=== PATIENT | female | born 1990 | race Two or more races ===

== ENCOUNTER 2023-06-04 10:48 | Outpatient (CLI) | payer OTHER | END 2023-06-04 10:51 | disposition home or self-care (01) | LOC: NUCLEAR 10:48 | PROVIDERS: ATTEND Obstetrics & Gynecology Gynecology | DX: O09.72 Supervision of high risk pregnancy due to social problems, second trimester (principal) ==

== ENCOUNTER 2024-02-09 13:46 | Outpatient (CLI) | payer OTHER ==
[~2024-02-09 13:46] MED LIST: C-NATE DHA SOF1 EACH; PROTONIX40 MG
== END 2024-02-09 13:57 | disposition home or self-care (01) ==
LOC: RAD 13:46
PROVIDERS: ATTEND Orthopaedic Surgery
DX: S93.491D Sprain of other ligament of right ankle, subsequent encounter (principal); S82.871D Displaced pilon fracture of right tibia, subsequent encounter for closed fracture with routine healing

== ENCOUNTER 2024-04-01 13:24 | Outpatient (CLI) | payer OTHER | END 2024-04-01 13:25 | disposition home or self-care (01) | LOC: NUCLEAR 13:24 | PROVIDERS: ATTEND Orthopaedic Surgery | DX: M81.0 Age-related osteoporosis without current pathological fracture (principal) ==

== ENCOUNTER 2024-04-01 14:02 | Outpatient (CLI) | payer OTHER | END 2024-04-01 14:14 | disposition home or self-care (01) | LOC: LAB 14:02 | PROVIDERS: ATTEND Orthopaedic Surgery | DX: E55.9 Vitamin D deficiency, unspecified (principal); M85.9 Disorder of bone density and structure, unspecified; E56.1 Deficiency of vitamin K ==

== ENCOUNTER 2024-10-26 08:49 | Outpatient (CLI) | payer OTHER | END 2024-10-26 09:02 | disposition home or self-care (01) | LOC: RAD 08:49 | PROVIDERS: ATTEND Orthopaedic Surgery | DX: S82.841S Displaced bimalleolar fracture of right lower leg, sequela (principal) ==